=== PATIENT | male | born 1940 | race Caucasian/White ===

== ENCOUNTER 2017-06-23 17:00 | Emergency (ER) | payer MEDICARE, BC ==
[2014-05-29 19:53] VITALS: BMI 25.9
[~2017-06-23 17:00] MED LIST: BUPROPION HCL100 M1 PO; CRESTOR20 MG PO; FISH OIL 1,2001 CA1; HYDROCODONE-APA1 TAB PO; KEFLEX500 MG PO; NEURONTIN 300300 MG; NEURONTIN 300300 MG PO; PERCOCET 10/3251 TA1; PERCOCET 10/3251 TA1 PO; PRILOSEC20 MG; PRILOSEC20 MG PO; RED YEAST RICE600 MG PO; THORAZINE25 MG PO; WELLBUTRIN100 MG
== END 2017-06-23 18:23 | disposition home or self-care (01) ==
LOC: D.ER 17:00
DX: S01.81XA Laceration without foreign body of other part of head, initial encounter (principal); W26.8XXA Contact with other sharp object(s), not elsewhere classified, initial encounter; Y93.89 Activity, other specified; Y92.89 Other specified places as the place of occurrence of the external cause; S00.31XA Abrasion of nose, initial encounter; I10 Essential (primary) hypertension; K21.9 Gastro-esophageal reflux disease without esophagitis

== ENCOUNTER 2017-07-01 06:22 | Day surgery (SDC) | payer MEDICARE, BC ==
[~2017-07-01] VITALS: Ht 175.3 cm; Wt 81.6 kg
--- NOTE | ~2017-07-01 | OP ---
PATIENT NAME: JONY CHAPARRO MEDICAL RECORD: [id number] :44 LOCATION:[facility] ADMISSION DATE: SURGEON: GALEN MATTHEW MD DATE OF OPERATION: 07/01/2017 PREOPERATIVE DIAGNOSIS: Chronic sinusitis. POSTOPERATIVE DIAGNOSIS: Chronic sinusitis. PROCEDURE: Bilateral middle meatal antrostomy, bilateral ethmoidectomy, right sphenoidotomy, and right nasal polypectomy. SURGEON: Galen Matthew MD ANESTHESIA: General orotracheal. BLOOD LOSS: Less than 5 cc. SPECIMENS: Polyps from the right nasal cavity, both middle and superior meatus. Cultures from the right maxillary sinus and sphenoid sinus. NASAL PACKING: None. COMPLICATIONS: None. DISPOSITION: Recovery stable. DESCRIPTION OF PROCEDURE: The patient was brought to the operating room and placed in supine position, sedated and intubated by anesthesia. The table was turned 90 degrees. He had already been decongested with Afrin preoperatively. Both sides of the nose were examined using a headlight and nasal speculum. The middle turbinate, uncinate, lateral nasal wall, and inferior turbinates were injected with a total of 1 cc of 1% lidocaine with 1:100,000 epinephrine and then Afrin pledgets were placed in the middle meatus and along the floor of the nose and inferior turbinate on both sides. He was positioned, prepped and draped in the usual fashion for nasal surgery. Then, all the Afrin pledgets were removed. Then, 0-degree scope was used to examine the left side of the nose first. The middle turbinate and middle meatus were normal. The inferior turbinate was normal. The nasal vault and nasopharynx were normal. The middle turbinate was gently medialized with a freer. The maxillary ostia was identified with a small curved olive tip suction and enlarged with a backbiter and it was examined and suction out. There were some polypoid changes in the sinus, but really no purulence or drainage. A 30-degree scope was used to examine the sinus. There was some pillowy edema, but no obvious infection. The ethmoid cavity was entered inferomedially with the microdebrider. Again, polypoid type thickening of the mucosa in the sinus, but no visible signs of infection. There was minimal bleeding. With that completed, the right side was addressed and then examined. The inferior turbinate was normal. In the middle meatus, there was obvious polyp and purulent drainage. There were polyps between the middle turbinate and the septum as well. A freer was used to lateralize the middle turbinate to get access to the sphenoid ostia. There were some polyps in the way. I was able to gently move those out of the way with the scope and a freer and I was able to get a 7 suction into the sphenoid ostia. It was obstructed totally by polypoid tissue, but really the bony ostia was opened normally and easily fit that suction in there. The sinus was aerated. There OPERATIVE REPORT [id number] JONY CHAPARRO was purulent drainage around the polyps, some cultures were obtained. Then the microdebrider was used to take down those polyps including some polyps that were based on the septum and give a better view and then polyps on the face of the sphenoid sinus were removed, so that the sphenoid ostia was clean and clear so that the polyp was sent for specimen as well. Then, the middle turbinate was medialized and polyps were removed from the middle meatus as well. A curved olive tip suction was punctured into the maxillary sinus where there was obvious purulent drainage. Copious purulence was extruded, some of this was captured in Luki trap and sent for culture. A backbiter was used to open up that sinus and then the microdebrider used to take down some of the polypoid tissue and expose the ostia better. A nice size ostia about 8 mm in diameter was created. Then the ethmoid cavity was entered inferomedially. Again, there was copious polypoid type tissue filling the sinuses and then the ethmoid cavity was dissected out posteriorly, really not much bleeding now. Then, the cultures were obtained, the polyps had been sent for path. Then, using a curved olive tip suction all the sinuses were irrigated out repeatedly with 30 cc syringe, the nasopharynx was suctioned. Once that was all completed, everything was rinsed out. There was no bleeding. A curved olive tip suction and a 10 cc syringe with mupirocin ointment was used to place some mupirocin ointment and the maxillary and ethmoid cavities. Eyes were examined and normal. He was awakened, extubated, and transported to recovery in good condition. No complications. TRANSINT:[id number] Voice Confirmation ID: [id number] DOCUMENT ID: [id number] GALEN MATTHEW MD CC: [id number] DICTATION DATE: 07/01/17 1050 [place] ARTIST: 07/01/17 1300 [facility] [place] 07/01/17 [place] [id number] [place] [id number]
--- NOTE | ~2017-07-01 | HP ---
PATIENT: JONY RIVERA MEDICAL RECORD: [id number] ACCOUNT: [id number] LOCATION:[facility] : 44 ADMISSION DATE: 07/01/17 HISTORY AND PHYSICAL EXAMINATION HISTORY OF PRESENT ILLNESS: Mr. Rivera is a 76-year-old male with sinus problems. He has been having pressure and foul drainage for 6 months to a year from his nose. He has been through repeated treatments, has been refractory with medical management. He has mostly unilateral right-sided disease. He is being admitted for sinus surgery. PAST SURGICAL HISTORY: Includes hypertension and reflux. CURRENT MEDICATIONS: Crestor, Neurontin, and a blood pressure medication. ALLERGIES: ASPIRIN. PHYSICAL EXAMINATION: GENERAL: Healthy-appearing, developmentally normal. FACE: Normal, symmetric, no lesions. EYES: Sclerae and conjunctivae are normal. EARS: Both TMs are intact. No middle ear effusion. NOSE: No masses, polyps, or drainage. ORAL CAVITY AND OROPHARYNX: Tongue protrudes in midline. Palate is normal. No postnasal drainage. NECK: No masses, no adenopathy. CHEST: Clear. CARDIOVASCULAR: Regular rate and rhythm. No murmur. EXTREMITIES: Normal. DIAGNOSTIC DATA: CT scan shows opacification of right maxillary sinus, right sphenoid mucosal thickening in the ethmoids, more severe on the right side, but there is a left-sided ethmoid and maxillary disease as well. PLAN: Bilateral middle meatal antrostomy, bilateral ethmoidectomy, and right sphenoidotomy. TRANSINT:[id number] Voice Confirmation ID: [id number] DOCUMENT ID: [id number] JIGNA MATTHEW MD CC: [id number] DICTATION DATE: 06/28/17902 CERTIFIED ORTHOTIST: 06/28/17 0940 PRE [facility] [address] [place] [address]
[2017-07-01] MEDS ORDERED: LOPRESSOR25 MG PO (06:59)
[2017-07-01 07:05] VITALS: BP 120/65; Ht 175.3 cm; Wt 81.6 kg
[2017-07-01 07:47] LABS: HEMATOCRIT 36.5 % (42.0-54.0); HEMOGLOBIN 12.5 g/dL (13.5-17.5); MCH 31.2 pg (26.0-34.0); MCHC 34.2 g/dL (31.0-37.0); MEAN PLATELET VOLUME 9.8 fL (7.4-10.4); RBC 4.01 10x6/uL (4.20-6.10); RDW 13.4 % (11.5-14.5); WBC 5.7 10x3/uL (4.8-10.8)
== END 2017-07-01 12:42 | disposition home or self-care (01) ==
LOC: D.OPS 06:22
PROVIDERS: Anesthesiology
DX: J32.8 Other chronic sinusitis (principal); J33.8 Other polyp of sinus; J33.0 Polyp of nasal cavity; I10 Essential (primary) hypertension; K21.9 Gastro-esophageal reflux disease without esophagitis; Z79.899 Other long term (current) drug therapy; Z88.6 Allergy status to analgesic agent; Z01.812 Encounter for preprocedural laboratory examination

== ENCOUNTER → 2018-12-01 14:29 | Outpatient (CLI) | payer MEDICARE, BC ==
[2017-07-01 07:05] VITALS: BMI 26.6
[~2018-12-01 14:29] MED LIST changes: +LOPRESSOR25 MG PO
== END | disposition home or self-care (01) ==
LOC: D.LAB 14:29 → D.RT 15:00
PROVIDERS: ATTEND Internal Medicine Pulmonary Disease
DX: J44.9 Chronic obstructive pulmonary disease, unspecified (principal)

== ENCOUNTER → 2020-03-08 08:05 | Outpatient (CLI) | payer MEDICARE, BC ==
[2017-07-01 07:05] VITALS: BMI 26.6
== END | disposition home or self-care (01) ==
LOC: D.LAB 08:05
PROVIDERS: ATTEND Internal Medicine Pulmonary Disease
DX: Z11.59 Encounter for screening for other viral diseases (principal)

== ENCOUNTER → 2020-03-11 07:27 | Outpatient (CLI) | payer MEDICARE, BC ==
[2017-07-01 07:05] VITALS: BMI 26.6
== END | disposition home or self-care (01) ==
LOC: D.RT 02-05 10:30
PROVIDERS: ATTEND Internal Medicine Pulmonary Disease
DX: J44.9 Chronic obstructive pulmonary disease, unspecified (principal)

== ENCOUNTER → 2020-09-20 10:45 | Outpatient (CLI) | payer MEDICARE, BC ==
[2017-07-01 07:05] VITALS: BMI 26.6
== END | disposition home or self-care (01) ==
LOC: D.RAD 10:45
PROVIDERS: ATTEND Internal Medicine Pulmonary Disease
DX: J45.909 Unspecified asthma, uncomplicated (principal)